=== PATIENT | female | born 1955 | race Caucasian/White ===

== ENCOUNTER → 2018-05-02 | Outpatient (CLI) | payer OTHER ==
--- NOTE | 2018-05-02 13:09 | PCVCIMAG ---
APPROVED REPORT Study performed: 05/02/2018 11:08:44 Exam: Stress Echocardiogram Indication: HTN, fam hx early CAD, DM, post chemotherapy Patient Location: Echo lab Stress Nurse: Do Lazcano RN Status: routine Ht: 5 ft 7 in HR: 96 bpm BP: 150/92 mmHg Rhythm: Tachycardia Procedure The patient underwent an Exercise Stress Test using the Ghanshyam Protocol. Blood pressure, heart rate, and EKG were monitored. An Echocardiogram was performed by seed technician in four stages in quad fashion. At peak stress, four selected images were obtained and placed side by side with resting images for comparison. Stress Test Details Stress Test: Exercise stress testing was performed using a Ghanshyam protocol. HR Resting HR: 96 bpmMax Heart Rate (APMHR): 155 bpm Max HR Achieved: 173 bpmTarget HR (85% APMHR): 131 bpm % of APMHR: 111 Recovery HR: 115 bpm HR response to stress: Normal HR response to stress BP Resting BP: 150/92 mmHg Max BP: 168/82 mmHg Recovery BP: 142/64 mmHg BP response to stress: Normal blood pressure response to stress. ECG Resting ECG: Tachycardia with fusion complexes and isolated PVCs Stress ECG: Sinus Rhythm ST Change: equivocal ST abnormality Arrhythmia: isolated PVCs Recovery ECG: Sinus Tachycardia Recovery Arrhythmia: PVCs Clinical Reason for Termination: Maximal effort Stress Symptoms: Dyspnea Exercise duration: 6 min 22 sec Highest Stage Achieved: Stage 3: 3.4 mph at 14% grade. Exercise capacity: 8.1 METs Overall Exercise Capacity for Age: Average Scale: Sedentary Angina Score: None Pre-Stress Echo The resting Echocardiogram showed normal left ventricular contractility with an estimated Ejection Fraction of about 50%. Normal wall motion in all segments on baseline images. Post-Stress Echo The stress Echocardiogram showed normal left ventricular contractility with an estimated Ejection Fraction of about 60%. Normal augmentation of wall motion in all segments on post stress images. Clinical No clinical or ECG evidence for ischemia. Conclusion Clinical Response: Non-ischemic Exercise Capacity: Average Stress ECG Response: Non-ischemic Stress Echo Images: Non-ischemic The left ventricle is normal in size and wall thickness in both the rest and stress images. Other Information Study Quality: Adequate <Conclusion> The left ventricle is normal in size and wall thickness in both the rest and stress images.
== END | disposition home or self-care (01) ==
LOC: PCVCIMAG 11:23
PROVIDERS: ATTEND Internal Medicine Cardiovascular Disease
DX: I10 Essential (primary) hypertension (principal); E11.9 Type 2 diabetes mellitus without complications; E78.00 Pure hypercholesterolemia, unspecified; Z82.49 Family history of ischemic heart disease and other diseases of the circulatory system
CPT/HCPCS: 93325; 93351